=== PATIENT | male | born 1940 | race Hispanic/Latino ===

== ENCOUNTER → 2018-05-07 | Outpatient (CLI) | payer MEDICARE ==
[2018-05-07 13:41] LABS: CREATININE 0.9 mg/dL (0.5-1.5)
== END | disposition home or self-care (01) ==
LOC: LAB 12:54
PROVIDERS: ATTEND Urology
DX: N39.0 Urinary tract infection, site not specified (principal)
CPT/HCPCS: 36415; 82565; 84520

== ENCOUNTER → 2018-05-12 | Outpatient (CLI) | payer MEDICARE ==
[~2018-05-12] MED LIST: IOHEXOL-350 75 ML VIAL IV ONE
== END | disposition home or self-care (01) ==
LOC: DAH 08:13
PROVIDERS: ATTEND Urology
DX: K57.90 Diverticulosis of intestine, part unspecified, without perforation or abscess without bleeding (principal); N39.0 Urinary tract infection, site not specified; M47.895 Other spondylosis, thoracolumbar region
CPT/HCPCS: 74178; Q9967

== ENCOUNTER 2018-10-18 11:16 | Emergency (ER) | payer MEDICARE ==
[2018-10-18 11:50] LABS: BASOPHILS % (AUTO) 0.6 % (0.0-5.0); EOSINOPHILS % (AUTO) 1.1 % (0.0-8.0); HEMATOCRIT 38.5 % (42-54); LYMPHOCYTES % (AUTO) 26.5 % (21.0-51.0); MEAN CORPUSCULAR HEMOGLOBIN 32.5 pg (27.0-33.0); MEAN CORPUSCULAR HGB CONC 33.6 g/dL (32.0-36.0); MEAN CORPUSCULAR VOLUME 96.9 fL (79-99); MONOCYTES % (AUTO) 6.4 % (3.0-13.0); NEUTROPHILS % (AUTO) 65.4 % (40.0-77.0); PLATELET COUNT (AUTO) 221 K/uL (130-400); RED BLOOD CELL COUNT(AUTO) 3.97 MIL/uL (4.50-6.20); RED CELL DISTRIBUTION WIDTH 13.5 % (11.0-15.5); WHITE BLOOD COUNT (AUTO) 6.6 K/uL (4.8-10.8)
[2018-10-18] MEDS ORDERED: SODIUM CHLORIDE 0.9% 1000ML 1,000 ML IV ONE (11:59)
[2018-10-18 12:04] LABS: CREATININE 0.8 mg/dL (0.5-1.5); INR 0.95 (0.85-1.15); POTASSIUM 4.2 mmol/L (3.5-5.1)
[2018-10-18 12:04] LABS: APPEARANCE,URINE Clear (CLEAR); BILIRUBIN,URINE Negative (NEGATIVE); COLOR,URINE Dark Yellow (YELLOW); GLUCOSE, URINE (UA) Negative (NEGATIVE); KETONES,URINE Negative (NEGATIVE); LEUKOCYTE ESTERASE ,URINE Negative (NEGATIVE); NITRATE,URINE Negative (NEGATIVE); OCCULT BLOOD,URINE Negative (NEGATIVE); PH,URINE 5.5 (5.0-8.0); PROTEIN,URINE Negative (NEGATIVE)
[2018-10-18 12:15] LABS: ALBUMIN 3.4 g/dL (3.5-5.0); BILIRUBIN,TOTAL 0.5 mg/dL (0.2-1.0); TOTAL PROTEIN, SERUM 6.9 g/dL (6.0-8.3)
== END 2018-10-18 13:41 | disposition home or self-care (01) ==
LOC: EDH 11:16
DX: E86.0 Dehydration (principal); R94.6 Abnormal results of thyroid function studies; R53.1 Weakness; Z90.49 Acquired absence of other specified parts of digestive tract; Z90.89 Acquired absence of other organs
CPT/HCPCS: 36415; 71045; 80053; 81003; 82550; 83874; 84443; 84484; 85025; 85610; 85730; 93005; 94761; 96360; 99284; J7030

== ENCOUNTER 2018-11-26 12:58 | Emergency (ER) | payer MEDICARE ==
[2018-11-26 13:51] LABS: BASOPHILS % (AUTO) 0.5 % (0.0-5.0); EOSINOPHILS % (AUTO) 1.3 % (0.0-8.0); HEMATOCRIT 36.4 % (42-54); LYMPHOCYTES % (AUTO) 27.2 % (21.0-51.0); MEAN CORPUSCULAR HEMOGLOBIN 32.5 pg (27.0-33.0); MEAN CORPUSCULAR HGB CONC 33.5 g/dL (32.0-36.0); MEAN CORPUSCULAR VOLUME 96.9 fL (79-99); MONOCYTES % (AUTO) 6.6 % (3.0-13.0); NEUTROPHILS % (AUTO) 64.4 % (40.0-77.0); PLATELET COUNT (AUTO) 214 K/uL (130-400); RED BLOOD CELL COUNT(AUTO) 3.76 MIL/uL (4.50-6.20); RED CELL DISTRIBUTION WIDTH 13.4 % (11.0-15.5); WHITE BLOOD COUNT (AUTO) 6.3 K/uL (4.8-10.8)
[2018-11-26 14:00] LABS: CREATININE 0.7 mg/dL (0.5-1.5); POTASSIUM 3.9 mmol/L (3.5-5.1)
[2018-11-26 14:06] LABS: ALBUMIN 3.4 g/dL (3.5-5.0); BILIRUBIN,TOTAL 0.4 mg/dL (0.2-1.0); TOTAL PROTEIN, SERUM 6.7 g/dL (6.0-8.3)
== END 2018-11-26 15:11 | disposition home or self-care (01) ==
LOC: EDH 12:58
DX: S02.2XXA Fracture of nasal bones, initial encounter for closed fracture (principal); S16.1XXA Strain of muscle, fascia and tendon at neck level, initial encounter; S09.90XA Unspecified injury of head, initial encounter; I10 Essential (primary) hypertension; E78.5 Hyperlipidemia, unspecified; E07.9 Disorder of thyroid, unspecified; Z90.89 Acquired absence of other organs; Z90.49 Acquired absence of other specified parts of digestive tract; V89.2XXA Person injured in unspecified motor-vehicle accident, traffic, initial encounter; Y93.89 Activity, other specified; Y92.410 Unspecified street and highway as the place of occurrence of the external cause; Y99.8 Other external cause status
CPT/HCPCS: 36415; 70450; 70486; 71045; 72125; 73562; 80053; 83690; 84484; 85025; 93005

== ENCOUNTER → 2018-12-18 | Outpatient (CLI) | payer MEDICARE | END | disposition home or self-care (01) | LOC: RAH 08:08 | PROVIDERS: ATTEND Family Medicine | DX: N40.0 Benign prostatic hyperplasia without lower urinary tract symptoms (principal); Z90.49 Acquired absence of other specified parts of digestive tract | CPT/HCPCS: 74176 ==

== ENCOUNTER → 2018-12-24 | Outpatient (CLI) | payer MEDICARE | END | disposition home or self-care (01) | LOC: RAH 12:31 | PROVIDERS: ATTEND Family Medicine | DX: M17.11 Unilateral primary osteoarthritis, right knee (principal); M19.011 Primary osteoarthritis, right shoulder | CPT/HCPCS: 73030; 73562 ==

== ENCOUNTER → 2019-03-09 | Outpatient (CLI) | payer MEDICARE | END | disposition home or self-care (01) | LOC: RAH 10:51 | PROVIDERS: ATTEND Family Medicine | DX: S46.211A Strain of muscle, fascia and tendon of other parts of biceps, right arm, initial encounter (principal); M25.411 Effusion, right shoulder; X58.XXXA Exposure to other specified factors, initial encounter; Y93.89 Activity, other specified; Y92.89 Other specified places as the place of occurrence of the external cause; Y99.8 Other external cause status | CPT/HCPCS: 73218 ==

== ENCOUNTER → 2019-04-07 | Outpatient (CLI) | payer MEDICARE | END | disposition home or self-care (01) | LOC: RAH 12:12 | PROVIDERS: ATTEND Family Medicine | DX: R10.9 Unspecified abdominal pain (principal) | CPT/HCPCS: 74018 ==

== ENCOUNTER → 2019-05-26 | Outpatient (CLI) | payer MEDICARE | END | disposition home or self-care (01) | LOC: RAH 13:23 | PROVIDERS: ATTEND Family Medicine | DX: J34.2 Deviated nasal septum (principal); I65.23 Occlusion and stenosis of bilateral carotid arteries | CPT/HCPCS: 70486; 93880 ==

== ENCOUNTER → 2019-08-12 | Outpatient (CLI) | payer MEDICARE ==
[2019-08-12 10:56] LABS: CREATININE 0.7 mg/dL (0.5-1.5)
== END | disposition home or self-care (01) ==
LOC: LAB 10:19
PROVIDERS: ATTEND Dermatology
DX: C44.320 Squamous cell carcinoma of skin of unspecified parts of face (principal); R59.9 Enlarged lymph nodes, unspecified; Z85.828 Personal history of other malignant neoplasm of skin
CPT/HCPCS: 36415; 82565; 84520

== ENCOUNTER → 2019-08-17 | Outpatient (CLI) | payer MEDICARE ==
[~2019-08-17] MED LIST changes: +IOHEXOL-350 50ML VIAL IV ONE; -IOHEXOL-350 75 ML VIAL IV ONE
== END | disposition home or self-care (01) ==
LOC: RAH 12:29
PROVIDERS: ATTEND Dermatology
DX: R22.1 Localized swelling, mass and lump, neck (principal); Z85.72 Personal history of non-Hodgkin lymphomas
CPT/HCPCS: 70492; Q9967

== ENCOUNTER 2019-09-26 10:33 | Observation (INO) | payer MEDICARE ==
[~2019-09-26] VITALS: Ht 167.6 cm; Wt 55.4 kg
[2019-09-26] MEDS ORDERED: SODIUM CHLORIDE 0.9% 1000ML 1,000 ML IV ONE ×2 (11:36→17:43)
[2019-09-26 11:40] LABS: BASOPHILS % (AUTO) 0.6 % (0.0-5.0); EOSINOPHILS % (AUTO) 0.5 % (0.0-8.0); HEMATOCRIT 40.8 % (42-54); LYMPHOCYTES % (AUTO) 12.7 % (21.0-51.0); MEAN CORPUSCULAR HEMOGLOBIN 32.8 pg (27.0-33.0); MEAN CORPUSCULAR HGB CONC 33.6 g/dL (32.0-36.0); MEAN CORPUSCULAR VOLUME 97.5 fL (79-99); MONOCYTES % (AUTO) 4.5 % (3.0-13.0); NEUTROPHILS % (AUTO) 81.7 % (40.0-77.0); PLATELET COUNT (AUTO) 244 K/uL (130-400); RED BLOOD CELL COUNT(AUTO) 4.19 MIL/uL (4.50-6.20); RED CELL DISTRIBUTION WIDTH 13.4 % (11.0-15.5); WHITE BLOOD COUNT (AUTO) 6.6 K/uL (4.8-10.8)
[2019-09-26 11:54] LABS: INR 0.94 (0.85-1.15); PARTIAL THROMBOPLASTIN TIME 24.6 SEC (26.3-35.5); PROTHROMBIN TIME 9.9 SEC (9.6-11.6)
[2019-09-26 12:02] LABS: CARBON DIOXIDE 29 mmol/L (21-32); CHLORIDE 100 mmol/L (101-111); GLOMERULAR FILTR. RATE CALC 77 mL/min (>60); GLUCOSE,RANDOM 117 mg/dL (70-105); POTASSIUM 4.4 mmol/L (3.5-5.1); SODIUM SERUM 137 mmol/L (136-145); UREA NITROGEN, BLOOD 19 mg/dL (7-18)
[2019-09-26 12:15] LABS: ALANINE AMINOTRANSFERASE 26 U/L (12-78); ALBUMIN 3.9 g/dL (3.5-5.0); ASPARTATE AMINOTRANSFERASE 23 U/L (10-37); BILIRUBIN,TOTAL 0.5 mg/dL (0.2-1.0); CREATINE KINASE, TOTAL 69 U/L (21-232); MYOGLOBIN 56 ng/mL (10-92); TOTAL PROTEIN, SERUM 7.3 g/dL (6.0-8.3); TROPONIN I < 0.04 ng/mL (0.00-0.06)
[2019-09-26 13:27] LABS: APPEARANCE,URINE Clear (CLEAR); BILIRUBIN,URINE Negative (NEGATIVE); COLOR,URINE Yellow (YELLOW); GLUCOSE, URINE (UA) Negative (NEGATIVE); KETONES,URINE Negative (NEGATIVE); LEUKOCYTE ESTERASE ,URINE Negative (NEGATIVE); NITRATE,URINE Negative (NEGATIVE); OCCULT BLOOD,URINE Negative (NEGATIVE); PH,URINE 6.5 (5.0-8.0); PROTEIN,URINE Negative (NEGATIVE)
[2019-09-26] MEDS ORDERED: NOREPINEPHRINE BITARTRATE 1 MG/1 ML ML IV ONE (16:17)
[2019-09-26] MEDS ORDERED: POTASSIUM CHLORIDE 10% ELIXIR 20 MEQ/15 ML UDCUP PO PRN (18:15)
[2019-09-26] MEDS ORDERED: LIDOCAINE HCL-MPF 1% 2ML VIAL IV PRN (18:15)
[2019-09-26] MEDS ORDERED: POTASSIUM CHLORIDE 20MEQ/100ML 100 ML IV PRN (18:15)
[2019-09-26] MEDS ORDERED: ONDANSETRON HCL 4 MG/2 ML VIAL IV PRN (18:15)
[2019-09-26] MEDS ORDERED: POTASSIUM CHLORIDE 20 MEQ ERTAB PO PRN (18:15)
[2019-09-26] MEDS ORDERED: ACETAMINOPHEN 325 MG TAB PO PRN ×2 (18:15)
[2019-09-26] MEDS ORDERED: NITROGLYCERIN 0.4 MG SL TAB SL PRN (18:15)
[2019-09-26 20:00] VITALS: BP 108/59
[2019-09-26] MEDS ORDERED: APIX5TAB PO (20:00)
[2019-09-26] MEDS ORDERED: TAMS-1 PO (20:00)
[2019-09-26] MEDS ORDERED: LIOT5TAB11 PO (20:00)
[2019-09-26] MEDS ORDERED: METO50TA18 PO (20:00)
--- NOTE | 2019-09-26 20:20 | NUR ---
ADMIT PATIENT ARRIVED ROOM ED AAOX3 ASSISTED TO BED. PATIENT DID NOT HAVE ANY COMPLAINTS OF CHEST PAIN OR NAUSEA. PATIENT DID HAVE ORDER TO CONSULT HIS DAIRY BACTERIOLOGIST WHICH IS DR DIETRICH. DR LENTZ IS COVERING FOR DR DIETRICH SO HE WAS CALLED TO INFORM OF PATIENT. ORDER GIVEN BY DR LENTZ AND CARRIED OUT.
[2019-09-26] MEDS ORDERED: LACTULOSE 20 GM/30 ML UDCUP PO SCH (20:30)
--- NOTE | 2019-09-26 21:00 | NUR ---
NO BOWEL MOVEMENT PATIENT COMPLAINS OF NOT HAVING A BOWEL MOVEMENT FOR OVER THREE DAYS Joseluis MORRIS NOTIFIED OF PATIENT COMPLAINT. MR JAILYN MORRIS ORDER LACTULOSE PO WHICH WAS GIVEN.
[2019-09-26] MEDS: LACTATED RINGERS 1000ML 1,000 ML IV SCH (21:17)
[2019-09-26] MEDS: APIXABAN 5 MG TABLET PO SCH (21:18)
[2019-09-26] MEDS: FAMOTIDINE 20MG TAB 20 MG TAB PO SCH (21:18)
[2019-09-26 23:43] VITALS: BP 102/59
[2019-09-27 03:50] VITALS: BP_SYST 105; BP_SYST 116; BP_SYST 98; BP_DIAS 61; BP_DIAS 66; BP_DIAS 74
[2019-09-27] MEDS: LACTATED RINGERS 1000ML 1,000 ML IV SCH ×2 (03:52→08:31)
[2019-09-27 04:02] LABS: BASOPHILS % (AUTO) 0.6 % (0.0-5.0); EOSINOPHILS % (AUTO) 1.8 % (0.0-8.0); HEMATOCRIT 33.2 % (42-54); LYMPHOCYTES % (AUTO) 31.9 % (21.0-51.0); MEAN CORPUSCULAR HEMOGLOBIN 33.5 pg (27.0-33.0); MEAN CORPUSCULAR HGB CONC 34.4 g/dL (32.0-36.0); MEAN CORPUSCULAR VOLUME 97.5 fL (79-99); NEUTROPHILS % (AUTO) 58.7 % (40.0-77.0); PLATELET COUNT (AUTO) 179 K/uL (130-400); RED CELL DISTRIBUTION WIDTH 13.5 % (11.0-15.5); WHITE BLOOD COUNT (AUTO) 6.7 K/uL (4.8-10.8)
[2019-09-27 04:21] LABS: CREATININE 0.8 mg/dL (0.5-1.5); POTASSIUM 3.5 mmol/L (3.5-5.1); THYROID STIMULATING HORMONE 0.45 uIU/mL (0.36-3.74)
[2019-09-27] MEDS ORDERED: LEVOTHYROXINE 25 MCG TABLET PO SCH (07:45)
[2019-09-27 07:48] VITALS: BP 118/73
[2019-09-27] MEDS ORDERED: LACTULOSE 20 GM/30 ML UDCUP PO SCH (08:00)
[2019-09-27] MEDS ORDERED: LACTULOSE 20 GM/30 ML UDCUP PO PRN (08:00)
[2019-09-27] MEDS: APIXABAN 5 MG TABLET PO SCH (08:31)
[2019-09-27] MEDS: FAMOTIDINE 20MG TAB 20 MG TAB PO SCH (08:31)
[2019-09-27] MEDS ORDERED: METOPROLOL TARTRATE 25 MG TAB PO SCH (09:00)
[2019-09-27] MEDS ORDERED: ENOXAPARIN SODIUM 30 MG/0.3 ML SQ SCH (09:00)
[2019-09-27 10:31] VITALS: BP 110/64
[2019-09-27 10:33] VITALS: BP 113/76
[2019-09-27 10:36] VITALS: BP 107/64
== END 2019-09-27 16:09 | disposition home or self-care (01) ==
LOC: EDH 10:33 → INTOOBSV 15:16 → OBSVTOIN 15:16 → EDHIP 15:16 → 4BH 19:02
PROVIDERS: ADMIT Internal Medicine Pulmonary Disease; ATTEND Internal Medicine Pulmonary Disease
DX: I95.1 Orthostatic hypotension (principal); R42 Dizziness and giddiness; I48.91 Unspecified atrial fibrillation; N40.0 Benign prostatic hyperplasia without lower urinary tract symptoms; E03.9 Hypothyroidism, unspecified; I10 Essential (primary) hypertension; E78.5 Hyperlipidemia, unspecified; D64.9 Anemia, unspecified; Z85.828 Personal history of other malignant neoplasm of skin; Z90.49 Acquired absence of other specified parts of digestive tract; Z79.01 Long term (current) use of anticoagulants; Z79.899 Other long term (current) drug therapy
CPT/HCPCS: 36415 ×2; 71045; 80048; 80053; 81003; 82550; 83605; 83874; 84145; 84439; 84443; 84484; 85025 ×2; 85610; 85730; 87040 ×2; 87088; 93005 ×2; 96360; 96361 ×2; 99284; G0378 ×22; J3490; J7030 ×2

== ENCOUNTER → 2019-10-08 | Outpatient (CLI) | payer MEDICARE ==
[~2019-10-08] MED LIST changes: +APIX5TAB PO; +LIOT5TAB11 PO
== END | disposition home or self-care (01) ==
LOC: RAH 12:00
PROVIDERS: ATTEND Otolaryngology
DX: R22.1 Localized swelling, mass and lump, neck (principal); C44.92 Squamous cell carcinoma of skin, unspecified
CPT/HCPCS: 70491; Q9967

== ENCOUNTER 2020-01-23 09:49 | Emergency (ER) | payer MEDICARE ==
[~2020-01-23 09:49] MED LIST changes: -IOHEXOL-350 50ML VIAL IV ONE
[2020-01-23] MEDS ORDERED: ASPIRIN 325 MG TABLET ONE (10:14)
[2020-01-23] MEDS ORDERED: SODIUM CHLORIDE 0.9% 500ML 500 ML IV ONE (10:14)
[2020-01-23 10:27] LABS: BASOPHILS % (AUTO) 0.6 % (0.0-5.0); EOSINOPHILS % (AUTO) 0.9 % (0.0-8.0); HEMATOCRIT 39.9 % (42-54); LYMPHOCYTES % (AUTO) 21.4 % (21.0-51.0); MEAN CORPUSCULAR HEMOGLOBIN 31.2 pg (27.0-33.0); MEAN CORPUSCULAR HGB CONC 32.8 g/dL (32.0-36.0); MONOCYTES % (AUTO) 7.7 % (3.0-13.0); NEUTROPHILS % (AUTO) 69.1 % (40.0-77.0); PLATELET COUNT (AUTO) 250 K/uL (130-400); WHITE BLOOD COUNT (AUTO) 6.4 K/uL (4.8-10.8)
[2020-01-23 10:49] LABS: CREATININE 1.1 mg/dL (0.5-1.5); POTASSIUM 3.6 mmol/L (3.5-5.1)
[2020-01-23 10:50] LABS: INR 0.98 (0.85-1.15); PARTIAL THROMBOPLASTIN TIME 28.5 SEC (26.3-35.5); PROTHROMBIN TIME 10.3 SEC (9.6-11.6)
[2020-01-23 10:55] LABS: ALBUMIN 3.6 g/dL (3.5-5.0); BILIRUBIN,TOTAL 0.3 mg/dL (0.2-1.0); TOTAL PROTEIN, SERUM 7.5 g/dL (6.0-8.3)
[2020-01-23 10:56] LABS: MAGNESIUM 2.6 mg/dL (1.80-2.40); PHOSPHORUS 4.2 mg/dL (2.5-4.9)
== END 2020-01-23 13:48 | disposition home or self-care (01) ==
LOC: EDH 09:49
DX: I48.0 Paroxysmal atrial fibrillation (principal); R53.1 Weakness; E78.5 Hyperlipidemia, unspecified; I10 Essential (primary) hypertension; Z90.49 Acquired absence of other specified parts of digestive tract
CPT/HCPCS: 36415; 71045; 80053; 82550; 83735; 83880; 84100; 84484 ×2; 85025; 85610; 85730; 93005 ×3; 99285; J7040

== ENCOUNTER 2020-02-16 11:15 | Emergency (ER) | payer MEDICARE ==
[2020-02-16 11:37] LABS: BASOPHILS % (AUTO) 0.4 % (0.0-5.0); EOSINOPHILS % (AUTO) 0.3 % (0.0-8.0); HEMATOCRIT 36.6 % (42-54); LYMPHOCYTES % (AUTO) 18.4 % (21.0-51.0); MEAN CORPUSCULAR HEMOGLOBIN 31.2 pg (27.0-33.0); MEAN CORPUSCULAR HGB CONC 33.3 g/dL (32.0-36.0); MEAN CORPUSCULAR VOLUME 93.6 fL (79-99); MONOCYTES % (AUTO) 8.8 % (3.0-13.0); NEUTROPHILS % (AUTO) 71.7 % (40.0-77.0); PLATELET COUNT (AUTO) 268 K/uL (130-400); RED BLOOD CELL COUNT(AUTO) 3.91 MIL/uL (4.50-6.20); RED CELL DISTRIBUTION WIDTH 13.4 % (11.0-15.5); WHITE BLOOD COUNT (AUTO) 10.7 K/uL (4.8-10.8)
[2020-02-16 11:46] LABS: CREATININE 0.9 mg/dL (0.5-1.5); POTASSIUM 3.1 mmol/L (3.5-5.1)
[2020-02-16 11:51] LABS: ALBUMIN 3.6 g/dL (3.5-5.0); BILIRUBIN,TOTAL 0.5 mg/dL (0.2-1.0); TOTAL PROTEIN, SERUM 7.8 g/dL (6.0-8.3)
== END 2020-02-16 14:13 | disposition home or self-care (01) ==
LOC: EDH 11:15
DX: K04.7 Periapical abscess without sinus (principal); E78.5 Hyperlipidemia, unspecified; I10 Essential (primary) hypertension; Z90.49 Acquired absence of other specified parts of digestive tract; W18.39XA Other fall on same level, initial encounter; Y93.01 Activity, walking, marching and hiking; Y92.89 Other specified places as the place of occurrence of the external cause; Y99.8 Other external cause status
CPT/HCPCS: 36415; 70450; 70486; 71250; 72125; 74176; 80053; 82550; 84484; 85025; 93005

== ENCOUNTER 2020-03-31 17:21 | Inpatient (IN) | payer MEDICARE ==
[~2020-03-31] VITALS: Ht 167.6 cm; Wt 48.8 kg
[2020-03-31] MEDS ORDERED: ACETAMINOPHEN 325 MG TAB ONE (17:46)
[2020-03-31] MEDS ORDERED: SODIUM CHLORIDE 0.9% 1000ML 1,000 ML IV ONE (17:46)
[2020-03-31 17:50] LABS: BASOPHILS % (AUTO) 0.3 % (0.0-5.0); EOSINOPHILS % (AUTO) 0.3 % (0.0-8.0); HEMATOCRIT 34.3 % (42-54); LYMPHOCYTES % (AUTO) 14.4 % (21.0-51.0); MEAN CORPUSCULAR HEMOGLOBIN 31.2 pg (27.0-33.0); MEAN CORPUSCULAR HGB CONC 33.2 g/dL (32.0-36.0); MONOCYTES % (AUTO) 6.3 % (3.0-13.0); NEUTROPHILS % (AUTO) 78.3 % (40.0-77.0); PLATELET COUNT (AUTO) 264 K/uL (130-400); RED BLOOD CELL COUNT(AUTO) 3.65 MIL/uL (4.50-6.20); RED CELL DISTRIBUTION WIDTH 13.2 % (11.0-15.5)
[2020-03-31 17:58] LABS: INR 1.05 (0.85-1.15); PARTIAL THROMBOPLASTIN TIME 30.3 SEC (26.3-35.5); PROTHROMBIN TIME 11.3 SEC (9.6-11.6)
[2020-03-31 18:07] LABS: POTASSIUM 3.4 mmol/L (3.5-5.1)
[2020-03-31 18:11] LABS: ALBUMIN 3.4 g/dL (3.5-5.0); BILIRUBIN,TOTAL 0.7 mg/dL (0.2-1.0); TOTAL PROTEIN, SERUM 7.4 g/dL (6.0-8.3)
[2020-03-31 18:16] LABS: B-TYPE NATRIURETIC PEPTIDE 105 pg/mL (0-100)
[2020-03-31 20:20] LABS: APPEARANCE,URINE Clear (CLEAR); BILIRUBIN,URINE Negative (NEGATIVE); COLOR,URINE Yellow (YELLOW); GLUCOSE, URINE (UA) Negative (NEGATIVE); KETONES,URINE Negative (NEGATIVE); LEUKOCYTE ESTERASE ,URINE Negative (NEGATIVE); NITRATE,URINE Negative (NEGATIVE); OCCULT BLOOD,URINE Negative (NEGATIVE); PH,URINE 6.5 (5.0-8.0); PROTEIN,URINE Negative (NEGATIVE); UROBILINOGEN,URINE 0.2 mg/dL (0.2-1.0)
[2020-03-31] MEDS ORDERED: ONDANSETRON HCL 4 MG/2 ML VIAL ONE (21:17)
[2020-03-31] MEDS ORDERED: ASPIRIN 325 MG TABLET ONE (21:17)
[2020-03-31] MEDS ORDERED: MORPHINE SULFATE 2 MG/ML 1ML SYG ONE (21:17)
[2020-03-31] MEDS: SODIUM CHLORIDE 0.9% 1000ML 1,000 ML IV SCH (21:30)
[2020-03-31 22:25] VITALS: BP 121/58
[2020-04-01 00:04] VITALS: BP 112/58
[2020-04-01 04:04] VITALS: BP 124/49
[2020-04-01 08:00] VITALS: BP 111/56
[2020-04-01] MEDS: SODIUM CHLORIDE 0.9% 1000ML 1,000 ML IV SCH ×2 (09:26→21:37)
[2020-04-01] MEDS: MORPHINE SULFATE 2 MG/ML 1ML SYG IVP PRN ×4 (09:27→23:47)
[2020-04-01] MEDS: ONDANSETRON HCL 4 MG/2 ML VIAL IVP PRN ×4 (09:34→23:41)
[2020-04-01 11:44] VITALS: BP 107/51
[2020-04-01 16:00] VITALS: BP 109/49
[2020-04-01] MEDS ORDERED: FENTANYL 25 MCG/HR PATCH TD SCH (17:00)
[2020-04-01 19:48] VITALS: BP 106/59
[2020-04-01] MEDS: APIXABAN 5 MG TABLET PO SCH (21:37)
[2020-04-02] VITALS (7 sets, daily range): BP systolic 108–132; BP diastolic 22–76
[2020-04-02] MEDS: ONDANSETRON HCL 4 MG/2 ML VIAL IVP PRN ×3 (03:39→23:40)
[2020-04-02] MEDS: MORPHINE SULFATE 2 MG/ML 1ML SYG IVP PRN ×3 (03:43→23:40)
[2020-04-02] MEDS: SODIUM CHLORIDE 0.9% 1000ML 1,000 ML IV SCH ×3 (06:09→20:55)
--- NOTE | 2020-04-02 06:44 | NUR ---
ROUNDS DR. CATALAN HERE TO SEE PATIENT. PATIENT TOLD HIM HE FEELS BETTER AND PAIN IS MORE CONTROLLED WITH CURRENT MEDICATIONS. SPOKE TO HIM ABOUT HOME HEALTH FOR HIM TO BE ARRANGED SO HE CAN CONTINUE WITH HIS RADIATION/CHEMO THERAPY WELL. ORDERS RECEIVED FOR CASE MANAGEMENT TO HELP ARRANGE HOME HEALTH SERVICES.
[2020-04-02 07:24] LABS: CREATININE 0.7 mg/dL (0.5-1.5)
[2020-04-02 07:53] LABS: POTASSIUM 2.6 mmol/L (3.5-5.1)
--- NOTE | 2020-04-02 08:00 | NUR ---
AM SHIFT ASSESSMENT.
--- NOTE | 2020-04-02 08:05 | NUR ---
LAB CALLED WITH POTASSIUM REPORT OF 2.6. OBTAINED ORDER FOR POT PROTOCOL.
[2020-04-02] MEDS ORDERED: POTASSIUM CHLORIDE 10% ELIXIR 20 MEQ/15 ML UDCUP PO PRN (08:15)
[2020-04-02] MEDS: Liothyronine Sodium 5 MCG PO SCH ×2 (09:00→21:00)
[2020-04-02] MEDS: APIXABAN 5 MG TABLET PO SCH ×2 (09:01→20:54)
[2020-04-02] MEDS: LIDOCAINE HCL-MPF 1% 2ML VIAL IV PRN ×2 (09:03→14:24)
[2020-04-02] MEDS: POTASSIUM CHLORIDE 20 MEQ ERTAB PO PRN ×3 (09:03→14:25)
[2020-04-02] MEDS: POTASSIUM CHLORIDE 20MEQ/100ML 100 ML IV PRN ×2 (09:04→14:26)
--- NOTE | 2020-04-02 18:06 | NUR ---
3RD,DRESSING CHANGE TO LT. SIDE NECK DONE, SM. AMT OF CLEAR YELLOW FLUID NOTED, HAS A SM CONTINUOS LEAK . NO SWELLING OR REDNESS SEEN. STATES HE IS SCHEDULED FOR RAD. CHEMO TX TOMORROW. HOME HEALTH NURSES WILL FOLLOW UP WITH HIM AT HOME
--- NOTE | 2020-04-02 19:07 | NUR ---
cm note met with patient and resides at home alone, has no dme. normally is able to walk on his own, just feels weaker lately. sister and friends assist as needed. pt had discussed possible snf, however, was told by dr payton, pt not a candidate for snf, because he still needs chemo and radiation tx. requested HH, per pt wants walker and provider and home health called [facility], from [place], has had them in the past, if not possible then any other HH. choice letter obtained. cm to followup. Addendum: 04/02/20 at 1914 by LUBA CONDON CM Amended: Links added.
[2020-04-03 04:08] VITALS: BP 137/65
--- NOTE | 2020-04-03 05:29 | NUR ---
WOUND CARE DRESSING CHANGE DONE TO LEFT NECK/JAW WOUND , MINIMAL DRAINAGE OBSERVED,LIGHT YELLOW COLOR , NO ODOR NOTED ,NO BLEEDING WELL , PAINTED WITH BETADINE /NS ,COVERED WITH FOLDED 4X4 STERILE GAUZE. TOLERATED WELL Addendum: 04/03/20 at 0532 by BING VALENZUELA RN RN Amended: Links added.
[2020-04-03 05:54] LABS: CREATININE 0.7 mg/dL (0.5-1.5); POTASSIUM 3.5 mmol/L (3.5-5.1)
[2020-04-03] MEDS: POTASSIUM CHLORIDE 20 MEQ ERTAB PO PRN (06:13)
[2020-04-03 07:37] VITALS: BP 110/46
[2020-04-03] MEDS: MORPHINE SULFATE 2 MG/ML 1ML SYG IVP PRN (08:07)
[2020-04-03] MEDS: APIXABAN 5 MG TABLET PO SCH (08:07)
[2020-04-03] MEDS: ONDANSETRON HCL 4 MG/2 ML VIAL IVP PRN (08:07)
--- NOTE | 2020-04-03 08:30 | NUR ---
Notified patient of Dr. Jenkins's order for discharge. Asked patient to call family or friend for transportation from hospital to Dr. Jenkins's office for chemotherapy.
[2020-04-03] MEDS: SODIUM CHLORIDE 0.9% 1000ML 1,000 ML IV SCH (08:33)
[2020-04-03] MEDS: Liothyronine Sodium 5 MCG PO SCH (09:00)
--- NOTE | 2020-04-03 11:10 | NUR ---
Discharge instructions reviewed. Dressing to Lt side of neck removed, cleansed with iodine and re-dressed with gauze and clear tegaderm. Patient able to verbalized steps of dressing change to neck. Supplies for dressing provided. Per Dr. Jenkins's verbal discharge order, patient notified to present to Dr. Jenkins's office today to resume chemotherapy. PIV to LFA removed, bleeding controlled and dressing applied. No new medications ordered. Patient assisted to emergency entrance via wheelchair, where sister to transport to Dr. Jenkins's office.
== END 2020-04-03 11:20 | disposition home or self-care (01) | DRG 948 ==
LOC: EDH 17:21 → EDHIP 21:00 → OBSVTOIN 21:00 → 3BH 22:15
PROVIDERS: ADMIT Internal Medicine Hematology & Oncology; ATTEND Internal Medicine Hematology & Oncology
DX: G89.3 Neoplasm related pain (acute) (chronic) (principal); C79.89 Secondary malignant neoplasm of other specified sites; C76.0 Malignant neoplasm of head, face and neck; E87.6 Hypokalemia; E86.0 Dehydration; E78.5 Hyperlipidemia, unspecified; I10 Essential (primary) hypertension; Z90.49 Acquired absence of other specified parts of digestive tract
CPT/HCPCS: 36415; 71045; 80048; 80053; 81003; 82550; 83605; 83735; 83880; 84484; 85025; 85610; 85730; 87040; 87070; 87076; 87804; 93005; G0378; J2405; J3480; J3490; J7030

== ENCOUNTER 2020-04-06 14:18 | Inpatient (IN) | payer MEDICARE ==
[~2020-04-06] VITALS: Ht 167.6 cm; Wt 45.2 kg
[2020-04-06 15:26] LABS: EOSINOPHILS % (AUTO) 0.1 % (0.0-8.0); MEAN CORPUSCULAR HEMOGLOBIN 31.3 pg (27.0-33.0); MEAN CORPUSCULAR HGB CONC 32.9 g/dL (32.0-36.0); MEAN CORPUSCULAR VOLUME 95.1 fL (79-99); MONOCYTES % (AUTO) 5.9 % (3.0-13.0); NEUTROPHILS % (AUTO) 81.6 % (40.0-77.0); PLATELET COUNT (AUTO) 263 K/uL (130-400); RED BLOOD CELL COUNT(AUTO) 3.26 MIL/uL (4.50-6.20); RED CELL DISTRIBUTION WIDTH 13.5 % (11.0-15.5); WHITE BLOOD COUNT (AUTO) 7.4 K/uL (4.8-10.8)
[2020-04-06 15:36] LABS: CREATININE 0.7 mg/dL (0.5-1.5); POTASSIUM 3.1 mmol/L (3.5-5.1)
[2020-04-06 15:37] LABS: INR 1.02 (0.85-1.15); PARTIAL THROMBOPLASTIN TIME 26.6 SEC (26.3-35.5)
[2020-04-06 15:40] LABS: ALBUMIN 2.9 g/dL (3.5-5.0); BILIRUBIN,TOTAL 0.7 mg/dL (0.2-1.0); TOTAL PROTEIN, SERUM 6.4 g/dL (6.0-8.3)
[2020-04-06 16:26] LABS: APPEARANCE,URINE Cloudy (CLEAR); BILIRUBIN,URINE Negative (NEGATIVE); COLOR,URINE Yellow (YELLOW); GLUCOSE, URINE (UA) Negative (NEGATIVE); KETONES,URINE Negative (NEGATIVE); LEUKOCYTE ESTERASE ,URINE Negative (NEGATIVE); NITRATE,URINE Negative (NEGATIVE); OCCULT BLOOD,URINE Negative (NEGATIVE); PH,URINE 7.5 (5.0-8.0); PROTEIN,URINE Negative (NEGATIVE)
[2020-04-06 16:48] LABS: AMORPHOUS SEDIMENT,UR Few /LPF (None Seen); BACTERIA,URINE Rare /HPF (None Seen); RBC,URINE 0-1 /HPF (0-1); SQUAMOUS EPITHELIAL CELL,UR 0-2 /HPF (0-2); WBC,URINE 0-1 /HPF (0-1)
[2020-04-06] MEDS ORDERED: ONDANSETRON HCL 4 MG/2 ML VIAL IVP PRN (19:30)
[2020-04-07] VITALS (7 sets, daily range): BP systolic 13–144; BP diastolic 64–78
[2020-04-07] MEDS ORDERED: POTASSIUM BICARB/CIT AC 25 MEQ TABLET.EFF ONE (00:05)
[2020-04-07] MEDS ORDERED: MORPHINE SULFATE 2 MG/ML 1ML SYG ONE (00:19)
[2020-04-07] MEDS: SODIUM CHLORIDE 0.9% 1000ML 1,000 ML IV SCH ×3 (01:59→06:18)
[2020-04-07] MEDS ORDERED: POTASSIUM CHLORIDE 20 MEQ ERTAB PO PRN (12:15)
[2020-04-07] MEDS: MORPHINE SULFATE 2 MG/ML 1ML SYG IVP PRN (14:09)
--- NOTE | 2020-04-07 14:24 | NUR ---
RDSCREEN - BMI 16.1 Pt pending PEG placement. History of head and neck CA. Recommend Continuous tube feeding, Jevity 1.5 initiated at 20mls for first 5 hours. Increase as tolerated by 5ml every 5 hours to goal. Goal: 45mls/hr to provide 1620kcal, 69gm protein. Recommend flushes: 120mls every 6 hours. Recommendations placed in Pt chart. RN notified. RD also provided Bolus feedings to be used as needed. RD to continue to monitor. Please notify as additional nutrition concerns arise. Thank you. Addendum: 04/07/20 at [address] Amended: Links added.
[2020-04-07] MEDS: POTASSIUM CHLORIDE 20MEQ/100ML 100 ML IV PRN (15:54)
[2020-04-07] MEDS: LIDOCAINE HCL-MPF 1% 2ML VIAL IV PRN (15:54)
[2020-04-07] MEDS: LACTULOSE 20 GM/30 ML UDCUP PO PRN (16:33)
[2020-04-08] MEDS: LIDOCAINE HCL-MPF 1% 2ML VIAL IV PRN (00:38)
[2020-04-08] MEDS: SODIUM CHLORIDE 0.9% 1000ML 1,000 ML IV SCH ×3 (00:38→20:55)
[2020-04-08] MEDS: POTASSIUM CHLORIDE 20MEQ/100ML 100 ML IV PRN (00:38)
[2020-04-08 03:19] LABS: BASOPHILS % (AUTO) 0.2 % (0.0-5.0); EOSINOPHILS % (AUTO) 0.2 % (0.0-8.0); HEMATOCRIT 34.9 % (42-54); MEAN CORPUSCULAR HEMOGLOBIN 31.3 pg (27.0-33.0); MEAN CORPUSCULAR VOLUME 94.8 fL (79-99); MONOCYTES % (AUTO) 5.5 % (3.0-13.0); NEUTROPHILS % (AUTO) 76.8 % (40.0-77.0); PLATELET COUNT (AUTO) 258 K/uL (130-400); RED BLOOD CELL COUNT(AUTO) 3.68 MIL/uL (4.50-6.20); RED CELL DISTRIBUTION WIDTH 13.1 % (11.0-15.5)
[2020-04-08 03:40] LABS: ALBUMIN 2.9 g/dL (3.5-5.0); BILIRUBIN,TOTAL 0.9 mg/dL (0.2-1.0); CREATININE 0.6 mg/dL (0.5-1.5); MAGNESIUM 1.9 mg/dL (1.80-2.40); TOTAL PROTEIN, SERUM 6.8 g/dL (6.0-8.3)
[2020-04-08 03:42] VITALS: BP 135/75
[2020-04-08] MEDS: MORPHINE SULFATE 2 MG/ML 1ML SYG IVP PRN ×3 (04:43→20:54)
[2020-04-08] MEDS ORDERED: GLYCOPYRROLATE 0.2 MG/ML 5 ML VIAL ONE (06:51)
[2020-04-08] MEDS ORDERED: PROPOFOL 10 MG/ML 20ML VIAL IV ONE (06:51)
[2020-04-08] MEDS ORDERED: LIDOCAINE HCL 1% 20 ML VIAL ONE (06:52)
--- NOTE | 2020-04-08 08:17 | NUR ---
late entry for 04/08/20 at 0700-procedure cancelled per anesthesia, md spoke to nurse upstairs bertrand and patient and explained reason procedure could not be done, no concerns.
[2020-04-08 09:56] VITALS: BP 119/70
--- NOTE | 2020-04-08 12:12 | NUR ---
1049 IR consult for peg , spoke with Dr Batres which states Peg can not be done by IR due to no Equipment. Charge nurse notified for further follow up with MD.Torres barahona
[2020-04-08 12:35] VITALS: BP 131/76
--- NOTE | 2020-04-08 15:01 | NUR ---
INITIAL SW spoke with patient's sister, Jackie Dickson, [phone]. Patient lives alone. As per sister, patient just started having a home health come to visit him but she does not remember the name of the agency. Patient's sister states that agency is suppose to come X 3 a week. DME: hospital bed (belonged to patient's mom before). Patient is able to complete ADL's independently but does take his time. As per sister, patient does not drive. Sister and a neighbor assist patient with transportation. SW educated sister on using medical transportation for patient. She stated she would consider. PCP is Dr. Tobin Shoemaker. Pharmacy is [facility] in [place]. Patient is currently receiving chemotherapy and radiation therapy. DCP is home. Addendum: 04/08/20 at 1509 by VENKAT CAREY SS Amended: Links added.
[2020-04-08 18:44] VITALS: BP 110/71
[2020-04-08 20:11] VITALS: BP 123/75
[2020-04-08 23:53] VITALS: BP 107/55
[2020-04-09 04:12] VITALS: BP 126/72
[2020-04-09] MEDS: MORPHINE SULFATE 2 MG/ML 1ML SYG IVP PRN ×2 (05:37→19:40)
[2020-04-09] MEDS: SODIUM CHLORIDE 0.9% 1000ML 1,000 ML IV SCH ×2 (06:48→17:02)
[2020-04-09 08:13] VITALS: BP 121/77
[2020-04-09 11:43] VITALS: BP 126/70
[2020-04-09 15:49] VITALS: BP 107/74
--- NOTE | 2020-04-09 19:40 | NUR ---
PAIN PT CLAIMS OF NECK PAINS. SHIFT ASSESSMENT DONE, PLEASE REFER TO CHART. MEDICATED WITH MORPHINE IV FOR PAINS. PT CLAIMS OF NO BM FOR SEVEN DAYS. GOOD BOWEL SOUNDS WITH PASSAGE OF GAS BUT VERY POOR PO INTAKE. LACTULOSE PO GIVEN. KEPT RESTED AND COMFORTABLE. CALL LIGHT WITHIN REACH. WILL RE-ASSESS PT. Addendum: 04/09/20 at 2203 by JP ANDERSON RN RN Amended: Links added.
[2020-04-09] MEDS: LACTULOSE 20 GM/30 ML UDCUP PO PRN (19:45)
[2020-04-09 19:56] VITALS: BP 120/68
--- NOTE | 2020-04-09 22:00 | NUR ---
ROUNDS PT RESTING WELL. NO COMPLAINTS VERBALIZED. PCP IN TO OFFER SHOWER TO PT AND PT CLAIMS HE JUST HAD A SHOWER AT 3PM. EXPLAINED THAT SINCE HE IS GOING FOR A PROCEDURE, HE NEEDS TO SHOWER. PT STILL REFUSING TO SHOWER AT ANYTIME DURING THE SHIFT. RE-ITERATED TO BE NPO POST MN, VERBALIZES UNDERSTANDING.
[2020-04-10] VITALS (25 sets, daily range): BP systolic 112–144; BP diastolic 52–82
--- NOTE | 2020-04-10 01:10 | NUR ---
DRESSING PT CALLS AND CLAIMS DRESSING TO LEFT NECK AREA IS WET. CHANGED DRESSING, CLEANSED SITE WITH NS, PAT DRY AND COVERED WITH GAUZE THEN SECURED WITH TAPE. KEPT RESTED IN BED WITH HOB ELEVATED. ENCOURAGED TO SLEEP. WILL MONITOR PT. Addendum: 04/10/20 at 0120 by JP ANDERSON RN RN Amended: Links added.
[2020-04-10] MEDS: SODIUM CHLORIDE 0.9% 1000ML 1,000 ML IV SCH ×4 (02:44→19:23)
[2020-04-10] MEDS: MORPHINE SULFATE 2 MG/ML 1ML SYG IVP PRN ×3 (04:16→19:36)
--- NOTE | 2020-04-10 04:16 | NUR ---
PAIN PCP IN TO CHECK V/S, STABLE. PT COMPLAINTS OF PAINS ON HIS NECK AND CALLS FOR MORPHINE DOSE. MEDICATED PT. KEPT COMFORTABLE IN BED. WILL RE-ASSESS PT.
--- NOTE | 2020-04-10 05:50 | NUR ---
ROUNDS PT FAIRLY ASLEEP, NO DISTRESS NOTED. KEPT UNDISTURBED FOR NOW. KEPT NPO. FOR MORE CARE AND MANAGEMENT.
--- NOTE | 2020-04-10 07:00 | NUR ---
SX SALINE LOCKED PT OR NURSE IN TO TAKE PT DOWN FOR PEG PLACEMENT. FOR MORE CARE. REPORT GIVEN TO AM SHIFT NURSEBRYCE.
[2020-04-10] MEDS ORDERED: LACTATED RINGERS 1000ML 1,000 ML IV ONE (07:06)
[2020-04-10] MEDS ORDERED: LIDOCAINE HCL 1% 20 ML VIAL ONE (07:16)
[2020-04-10] MEDS ORDERED: BUPIVACAINE/PF 0.5% 30ML VIAL ONE (07:16)
[2020-04-10 07:31] LABS: HEMATOCRIT 34.5 % (42-54); MEAN CORPUSCULAR HEMOGLOBIN 30.9 pg (27.0-33.0); MEAN CORPUSCULAR HGB CONC 33.3 g/dL (32.0-36.0); MEAN CORPUSCULAR VOLUME 92.7 fL (79-99); RED BLOOD CELL COUNT(AUTO) 3.72 MIL/uL (4.50-6.20); WHITE BLOOD COUNT (AUTO) 7.9 K/uL (4.8-10.8)
[2020-04-10] MEDS ORDERED: PROPOFOL 10 MG/ML 20ML VIAL IV ONE (07:42)
[2020-04-10] MEDS ORDERED: LIDOCAINE PF 2% 5ML ABBOJECT ONE (07:42)
[2020-04-10] MEDS ORDERED: FENTANYL CITRATE PF 50 MCG/1 ML 2ML VIAL ONE (07:43)
[2020-04-10] MEDS ORDERED: MIDAZOLAM HCL 1 MG/ML 2ML VIAL ONE (07:51)
[2020-04-10 08:38] LABS: CREATININE 0.6 mg/dL (0.5-1.5)
[2020-04-10 08:47] LABS: POTASSIUM 2.9 mmol/L (3.5-5.1)
[2020-04-10] MEDS: POTASSIUM CHLORIDE 20 MEQ/100 ML BAG IV SCH ×4 (10:10→19:38)
[2020-04-10] MEDS: LIDOCAINE HCL-MPF 1% 2ML VIAL IV PRN ×4 (10:11→19:38)
--- NOTE | 2020-04-10 15:30 | NUR ---
[facility] consult Patient assessed as ordered. Patient has small wound to left side of neck that is constantly draining serous fluid. [facility] recommendation submitted per protocol. Addendum: 04/11/20 at 0816 by IVANIA BAZAN RN/OXANA Amended: Links added.
[2020-04-11 00:30] VITALS: BP 123/69
[2020-04-11 04:41] VITALS: BP 116/74
[2020-04-11] MEDS: SODIUM CHLORIDE 0.9% 1000ML 1,000 ML IV SCH ×2 (05:27→16:02)
[2020-04-11] MEDS: MORPHINE SULFATE 2 MG/ML 1ML SYG IVP PRN ×2 (05:30→15:59)
[2020-04-11 05:40] LABS: BASOPHILS % (AUTO) 0.1 % (0.0-5.0); EOSINOPHILS % (AUTO) 0.1 % (0.0-8.0); HEMATOCRIT 30.5 % (42-54); LYMPHOCYTES % (AUTO) 11.2 % (21.0-51.0); MEAN CORPUSCULAR HGB CONC 32.8 g/dL (32.0-36.0); MEAN CORPUSCULAR VOLUME 94.4 fL (79-99); NEUTROPHILS % (AUTO) 81.9 % (40.0-77.0); PLATELET COUNT (AUTO) 248 K/uL (130-400); RED BLOOD CELL COUNT(AUTO) 3.23 MIL/uL (4.50-6.20); RED CELL DISTRIBUTION WIDTH 13.1 % (11.0-15.5); WHITE BLOOD COUNT (AUTO) 6.7 K/uL (4.8-10.8)
[2020-04-11 06:53] LABS: CREATININE 0.7 mg/dL (0.5-1.5); POTASSIUM 3.1 mmol/L (3.5-5.1)
[2020-04-11 07:30] VITALS: BP 123/75
--- NOTE | 2020-04-11 08:30 | NUR ---
DRESSING DRESSING CHANGE AT APPROX 0830 HOURS. CLEANED WOUND WITH NS, APPLIED DRY STERIL GAUZE AND SECURED WITH PAPER TAPE. PATIENT TOLERATED WITHOUT INCIDENT.
[2020-04-11] MEDS: LIDOCAINE HCL-MPF 1% 2ML VIAL IV PRN ×2 (10:52→14:17)
[2020-04-11] MEDS: POTASSIUM CHLORIDE 20MEQ/100ML 100 ML IV PRN ×2 (10:53→14:18)
[2020-04-11 11:00] VITALS: BP 126/70
--- NOTE | 2020-04-11 15:36 | NUR ---
RD FOLLOW UP NOTE Tube Feeding Re-initiated. Unable to have PEG placed, Pt now with Gastrostomy tube. LBM 03/31 vs 04/02/20 Recommend stool softener/laxative as medically feasible Recommend continue tube feeding. RD to continue to monitor. Please notify as additional nutrition concerns arise. Addendum: 04/11/20 at [address] Amended: Links added.
[2020-04-11 16:00] VITALS: BP 126/70
--- NOTE | 2020-04-11 16:44 | NUR ---
CM Note: POC CM spoke to pt regarding POC. Pt requested SNF placement short term rehab. Pt states he is still weak and would like to get stronger first prior to resuming treatments w/Dr Jenkins. DIOGENES signed for [facility]. Informed pt will make contact w/ for pt's request. Pending MD recommendations at this time. CM made contact w/Dr Emerson, made aware regarding pt request. Pending MD recommendations at this time. Primary nurse aware. CM to cont to follow up.
--- NOTE | 2020-04-11 19:26 | NUR ---
TUBE FEEDING STARTED TUBE FEEDING AT 1320 HOURS, JEVETY 1.5 AT A RATE OF 20ML/HR FOR 5 HOURS. PATIENT TOLERATED WITHOUT INCIDENT. INCREASED RATE AT APPROX 1830 HOURS TO 25ML/HR. PATIENT TOLERATING AT THIS TIME.
[2020-04-11 20:33] VITALS: BP 140/67
[2020-04-12] VITALS (7 sets, daily range): BP systolic 114–126; BP diastolic 60–73
[2020-04-12] MEDS: SODIUM CHLORIDE 0.9% 1000ML 1,000 ML IV SCH ×3 (01:11→22:16)
[2020-04-12] MEDS: MORPHINE SULFATE 2 MG/ML 1ML SYG IVP PRN ×4 (01:11→22:20)
[2020-04-12 05:42] LABS: BASOPHILS % (AUTO) 0.1 % (0.0-5.0); EOSINOPHILS % (AUTO) 1.9 % (0.0-8.0); HEMATOCRIT 33.6 % (42-54); LYMPHOCYTES % (AUTO) 16.9 % (21.0-51.0); MEAN CORPUSCULAR HEMOGLOBIN 31.4 pg (27.0-33.0); MEAN CORPUSCULAR HGB CONC 33.3 g/dL (32.0-36.0); MEAN CORPUSCULAR VOLUME 94.1 fL (79-99); MONOCYTES % (AUTO) 5.2 % (3.0-13.0); NEUTROPHILS % (AUTO) 75.5 % (40.0-77.0); PLATELET COUNT (AUTO) 265 K/uL (130-400); RED BLOOD CELL COUNT(AUTO) 3.57 MIL/uL (4.50-6.20); RED CELL DISTRIBUTION WIDTH 13.1 % (11.0-15.5); WHITE BLOOD COUNT (AUTO) 7.2 K/uL (4.8-10.8)
[2020-04-12 05:55] LABS: CREATININE 0.7 mg/dL (0.5-1.5)
--- NOTE | 2020-04-12 06:00 | NUR ---
0000: Patient's gastrostomy tube checked for residuel zero, feeding increased to 30 mls/hr. 0500: Patient's gastrostomy tube checked for residuel zero, feeding increased to 35 mls/hr.
[2020-04-12 06:05] LABS: POTASSIUM 2.8 mmol/L (3.5-5.1)
[2020-04-12] MEDS: LIDOCAINE HCL-MPF 1% 2ML VIAL IV PRN (06:09)
[2020-04-12] MEDS: POTASSIUM CHLORIDE 20MEQ/100ML 100 ML IV PRN (06:09)
[2020-04-12] MEDS: LACTULOSE 20 GM/30 ML UDCUP PO PRN (06:10)
[2020-04-12] MEDS: POTASSIUM CHLORIDE 20 MEQ/100 ML BAG IV SCH (10:45)
--- NOTE | 2020-04-12 14:10 | NUR ---
Patient complained of severe pain of 8 to LT side of neck. Administered 2 mg morphine IV push per physician PRN order. Will monitor for pain relief.
[2020-04-13 03:44] VITALS: BP 128/65
[2020-04-13] MEDS: LACTULOSE 20 GM/30 ML UDCUP PO PRN ×2 (03:54→21:17)
[2020-04-13] MEDS: MORPHINE SULFATE 2 MG/ML 1ML SYG IVP PRN ×2 (03:54→11:16)
[2020-04-13 04:38] LABS: BASOPHILS % (AUTO) 0.2 % (0.0-5.0); EOSINOPHILS % (AUTO) 0.3 % (0.0-8.0); HEMATOCRIT 33.7 % (42-54); LYMPHOCYTES % (AUTO) 21.8 % (21.0-51.0); MEAN CORPUSCULAR HEMOGLOBIN 30.5 pg (27.0-33.0); MEAN CORPUSCULAR HGB CONC 31.8 g/dL (32.0-36.0); MONOCYTES % (AUTO) 5.5 % (3.0-13.0); NEUTROPHILS % (AUTO) 71.4 % (40.0-77.0); PLATELET COUNT (AUTO) 265 K/uL (130-400); RED BLOOD CELL COUNT(AUTO) 3.51 MIL/uL (4.50-6.20); RED CELL DISTRIBUTION WIDTH 13.2 % (11.0-15.5); WHITE BLOOD COUNT (AUTO) 6.4 K/uL (4.8-10.8)
[2020-04-13 04:55] LABS: CREATININE 0.5 mg/dL (0.5-1.5); POTASSIUM 3.1 mmol/L (3.5-5.1)
[2020-04-13] MEDS: POTASSIUM CHLORIDE 10% ELIXIR 20 MEQ/15 ML UDCUP PO PRN ×2 (05:59→18:41)
[2020-04-13 07:49] VITALS: BP 114/60
--- NOTE | 2020-04-13 09:46 | NUR ---
CM Note: [facility] pending approval CM obtained consent for [facility]. Faxed order, clinicals, PT, PAS[facility], Covid PACT Assessment, confirmation received. Spoke to Mallorie will work on approval today. Pt pending approval. EMS arranged and faxed for today, primary nurse to call [facility] once pt ready to DC. Primary nurse aware. CM to cont to follow up.
[2020-04-13] MEDS: SODIUM CHLORIDE 0.9% 1000ML 1,000 ML IV SCH ×2 (11:14→21:17)
--- NOTE | 2020-04-13 12:36 | NUR ---
CM Note: [facility] pending covid result prior to approval. CM spoke to Mallorie Salgado, requesting covid rapid done prior to admission. Spoke to Dr Jenkins made aware of [facility] request, agreeable, order for covid rapid to be [facility] to [facility]. Primary nurse Cari Bob RN made aware, will let CM know once collected and sent to lab. Pt pending approval for [facility]. CM to cont to follow up.
[2020-04-13 12:37] VITALS: BP 112/72
[2020-04-13 16:03] VITALS: BP 118/71
[2020-04-13 19:35] VITALS: BP 120/71
[2020-04-13 23:56] VITALS: BP 133/70
[2020-04-14 03:55] VITALS: BP 101/54
[2020-04-14 08:00] VITALS: BP 112/80
--- NOTE | 2020-04-14 11:14 | NUR ---
CM Note: [facility] approval CM spoke to Mallorie, received updated clinicals and neg covid result. Pt has approval. EMS arranged and faxed for today, primary nurse to call [facility] once pt ready to DC. Primary nurse awrae. CM to cont to follow up.
[2020-04-14 12:00] VITALS: BP 112/67
[2020-04-14] MEDS: SODIUM CHLORIDE 0.9% 1000ML 1,000 ML IV SCH (12:49)
--- NOTE | 2020-04-14 16:22 | NUR ---
RD FOLLOW UP Pt tolerating tube feeding, Jevity 1.5 @45mls, goal rate. Pt continues with constipation, Lactulose in place. Rec to continue Tube Feeding. RD to continue to monitor. Addendum: 04/14/20 at [address] Amended: Links added.
--- NOTE | 2020-04-14 18:20 | NUR ---
REPORT ON PT GIVEN TO SUZAN AT [facility] IN [place]. INSTRUCTIONS GIVEN TO PT AND DENIES ANY PAIN. EDUCATED PT ON IMPORTANCE OF FOLLOWING ALL OF DRS ORDERS AND THE USE OF CALL LIGHT TO PREVENT ANY FALLS HERE AND WHEN TRANSFERRED TO [facility]. PT VERBALIZES UNDERSTANDING.
== END 2020-04-14 18:55 | DRG 391 ==
LOC: EDH 14:18 → OBSVTOIN 18:50 → EDHIP 18:50 → 3AH 23:32
PROVIDERS: ADMIT Internal Medicine Hematology & Oncology; ATTEND Internal Medicine Hematology & Oncology
PROC: 0DH63UZ Insertion of Feeding Device into Stomach, Percutaneous Approach (ICD-10-PCS; principal; 2020-04-10 07:45)
DX: R13.10 Dysphagia, unspecified (principal); E43 Unspecified severe protein-calorie malnutrition; C79.89 Secondary malignant neoplasm of other specified sites; R64 Cachexia; E87.6 Hypokalemia; E86.0 Dehydration; D64.9 Anemia, unspecified; E78.5 Hyperlipidemia, unspecified; I10 Essential (primary) hypertension; Z75.1 Person awaiting admission to adequate facility elsewhere; Z85.89 Personal history of malignant neoplasm of other organs and systems
CPT/HCPCS: 36415; 43246; 80048; 80053; 81001; 83690; 83735; 84132; 84484; 85025; 85027; 85610; 85730; 87633; 93005; 97039; A4606; G0378; J2001; J2250; J2704; J3010; J3480; J3490; J7030; J7120

== ENCOUNTER 2020-06-15 13:46 | Emergency (ER) | payer MEDICARE ==
[2020-06-15] MEDS ORDERED: CEFTRIAXONE SODIUM 2 GM VIAL ONE (15:10)
[2020-06-15 15:34] LABS: BASOPHILS % (AUTO) 0.1 % (0.0-5.0); EOSINOPHILS % (AUTO) 0.1 % (0.0-8.0); HEMATOCRIT 31.6 % (42-54); LYMPHOCYTES % (AUTO) 9.5 % (21.0-51.0); MEAN CORPUSCULAR HEMOGLOBIN 32.2 pg (27.0-33.0); MEAN CORPUSCULAR HGB CONC 32.6 g/dL (32.0-36.0); MEAN CORPUSCULAR VOLUME 98.8 fL (79-99); NEUTROPHILS % (AUTO) 84.9 % (40.0-77.0); PLATELET COUNT (AUTO) 311 K/uL (130-400); WHITE BLOOD COUNT (AUTO) 8.1 K/uL (4.8-10.8)
[2020-06-15 15:49] LABS: INR 0.97 (0.85-1.15); PARTIAL THROMBOPLASTIN TIME 27.5 SEC (26.3-35.5); PROTHROMBIN TIME 10.5 SEC (9.6-11.6)
[2020-06-15 15:51] LABS: APPEARANCE,URINE Clear (CLEAR); BILIRUBIN,URINE Negative (NEGATIVE); COLOR,URINE Yellow (YELLOW); GLUCOSE, URINE (UA) Negative (NEGATIVE); KETONES,URINE Negative (NEGATIVE); LEUKOCYTE ESTERASE ,URINE Negative (NEGATIVE); NITRATE,URINE Negative (NEGATIVE); OCCULT BLOOD,URINE Negative (NEGATIVE); PH,URINE 7.5 (5.0-8.0); PROTEIN,URINE Negative (NEGATIVE)
[2020-06-15 15:56] LABS: ALANINE AMINOTRANSFERASE 36 U/L (12-78); ALBUMIN 2.9 g/dL (3.5-5.0); ASPARTATE AMINOTRANSFERASE 24 U/L (10-37); BILIRUBIN,TOTAL 0.4 mg/dL (0.2-1.0); CARBON DIOXIDE 33 mmol/L (21-32); CHLORIDE 99 mmol/L (101-111); CREATINE KINASE, TOTAL 22 U/L (21-232); CREATININE 0.7 mg/dL (0.5-1.5); GLOMERULAR FILTR. RATE CALC 116 mL/min (>60); GLUCOSE,RANDOM 136 mg/dL (70-105); MYOGLOBIN 39 ng/mL (10-92); SODIUM SERUM 137 mmol/L (136-145); TOTAL PROTEIN, SERUM 6.9 g/dL (6.0-8.3); TROPONIN I < 0.04 ng/mL (0.00-0.06); UREA NITROGEN, BLOOD 19 mg/dL (7-18)
[2020-06-15 16:00] LABS: POTASSIUM 2.5 mmol/L (3.5-5.1)
[2020-06-15] MEDS ORDERED: POTASSIUM BICARB/CIT AC 25 MEQ TABLET.EFF ONE (16:34)
[2020-06-15] MEDS ORDERED: MAGNESIUM 2GM PREMIX 50ML 50 ML IV ONE (16:38)
== END 2020-06-15 19:58 | disposition home or self-care (01) ==
LOC: EDH 13:46
DX: E87.6 Hypokalemia (principal); R53.1 Weakness; E86.0 Dehydration; E78.5 Hyperlipidemia, unspecified; I10 Essential (primary) hypertension
CPT/HCPCS: 36415; 71045; 80053; 81003; 82550; 83605; 83874; 84145; 84484; 85025; 85610; 85730; 86900; 86901; 87040 ×2; 87077; 87088; 87186; 93005; 96361; 96365; 96366; 96375; 99285; J0696; J3475